=== PATIENT | male | born 1955 | race Caucasian/White ===

== ENCOUNTER 2017-10-28 19:29 | Emergency (ER) | payer SELFPAY ==
--- NOTE | 2017-10-28 19:39 | PDOC ---
Rapid Medical Evaluation Time Seen by Provider: 10/28/17 19:35 Medical Evaluation: I have performed a brief in-person evaluation of this patient. The patient presents with a chief complaint of: right hip pain today Pertinent physical exam findings: normal gait. No pain with palpation of right hip. No pain with manipulation of right leg or with palpation of lumbar spine. Patient admits the pain is intermittent and burning but does not radiate down leg I have ordered the following: nothing The patient will proceed to the ED for further evaluation. Discharge Disposition - Diagnosis Right hip pain - Referrals - Patient Instructions - Post Discharge Activity
[2017-10-28 19:53] VITALS: BP 158/87; PULSE 88; TEMP 98; BMI 26.4
--- NOTE | 2017-10-28 20:10 | PDOC ---
History of Present Illness - General Chief Complaint: Pain Stated Complaint: PAIN, ACUTE Time Seen by Provider: 10/28/17 19:35 History Source: Patient Exam Limitations: No Limitations - History of Present Illness Initial Comments: 10/28/17 20:15 Chief complaint: Hip pain Patient is 62-year-old male with history of NIDDM who states that he has right hip pain today that is shooting, last about 30 seconds. Patient took Advil earlier, no pain right now. No numbness or tingling or weakness. No saddle anesthesia or incontinence. Patient does not check his sugars GENERAL/CONSTITUTIONAL: No fever, weakness. dizziness HEAD, EYES, EARS, NOSE AND THROAT: No change in vision. No ear pain or discharge. No sore throat. CARDIOVASCULAR: No chest pain RESPIRATORY: No shortness of breath or cough GASTROINTESTINAL: No pain, nausea, vomiting, diarrhea or constipation GENITOURINARY: No dysuria MUSCULOSKELETAL: No neck or back pain. + Right hip SKIN: No rash NEUROLOGIC: No headache, vertigo, loss of consciousness, or loss of sensation. GENERAL: The patient is awake, alert, and fully oriented, in no acute distress. HEAD: Normal with no signs of trauma. EYES: Pupils equal, round and reactive to light, sclera anicteric, conjunctiva clear. ENT: pharynx: no erythema, no exudate, uvula midline NECK: supple CHEST: clear, nontender, rr ABD: soft, nontender EXTREMITIES: Normal range of motion, no edema. NEUROLOGICAL: Normal speech, normal gait. SKIN: Warm, Dry Past History - Past Medical History Allergies/Adverse Reactions: Allergies Allergy/AdvReac Type Severity Reaction Status Date / Time Penicillins Allergy Verified 10/28/17 19:48 Home Medications: Ambulatory Orders Aspirin 81 mg PO ASDIR 10/28/17 Metformin HCl 500 mg PO ASDIR 10/28/17 - Suicide/Smoking/Psychosocial Hx Smoking History: Never smoked Have you smoked in the past 12 months: No Information on smoking cessation initiated: No Hx Alcohol Use: No Drug/Substance Use Hx: No *Physical Exam - Vital Signs Last Vital Signs Temp Pulse Resp BP Pulse Ox 98.0 F 88 16 158/87 100 10/28/17 19:37 10/28/17 19:37 10/28/17 19:37 10/28/17 19:37 10/28/17 19:37 Medical Decision Making - Medical Decision Making 10/28/17 20:43 62-year-old male, NIDDM with left hip pain, no numbness, weakness, incontinence or saddle anesthesia. Patient earlier had sharp pain which was relieved with Advil. Patient is comfortable and ambulatory. Patient's fingerstick was 93. X-rays of the hip and lumbar spine show degenerative changes of the lumbar spine , no other acute pathology *DC/Admit/Observation/Transfer Diagnosis at time of Disposition: Right hip pain - Discharge Dispostion Disposition: HOME Condition at time of disposition: Stable - Referrals Referrals: Alicia Rivas MD [Primary Care Provider] - Juan Luis Cruz MD [Staff Physician] - - Patient Instructions Additional Instructions: Elevate You can apply ice for 20 minutes every 2 hours for the next 2 days Motrin 600 mg every 6 hours for pain. You should not take this for more than 3- 4 days Call the orthopedist tomorrow - Post Discharge Activity
== END 2017-10-28 20:47 | disposition home or self-care (01) ==
LOC: JERFT 19:29
DX: M25.551 Pain in right hip (principal); E11.9 Type 2 diabetes mellitus without complications; Z79.84 Long term (current) use of oral hypoglycemic drugs; Z79.82 Long term (current) use of aspirin
CPT/HCPCS: 72100-TC-FY; 73502-TC-RT; 82962; 99281-25

== ENCOUNTER 2020-04-18 11:56 | Emergency (ER) | payer OTHER ==
[2020-04-18 12:03] VITALS: BP 149/93; PULSE 100; TEMP 97.6; BMI 24.3
[2020-04-18] MEDS ORDERED: morphine CARPU-JECT 2 MG/1 ML DISP.SYRIN IM ONE (12:33)
[2020-04-18] MEDS ORDERED: MORPHINE SULFATE 2 MG/ML VIAL ONE (12:44)
[2020-04-18 13:01] LABS: BASO % 0.5 % (0-2.0); HEMATOCRIT 46.5 % (35.4-49); HEMOGLOBIN 15.4 GM/dL (11.7-16.9); LYMPH % 8.8 % (8-40); MCH 28.8 pg (25.7-33.7); MEAN CELL VOLUME 87.3 fl (80-96); MONO % 5.9 % (3.8-10.2); NEUT % 83.8 % (42.8-82.8); PLATELET COUNT 243 K/MM3 (134-434); RBC 5.33 M/mm3 (4.00-5.60); RDW 13.6 % (11.9-15.9); WHITE BLOOD COUNT 13.5 K/mm3 (4.0-10.0)
[2020-04-18 13:05] LABS: URINE APPEARANCE CLEAR; URINE BILIRUBIN NEGATIVE (NEGATIVE); URINE COLOR YELLOW; URINE GLUCOSE (UA) NEGATIVE (NEGATIVE); URINE KETONE TRACE (NEGATIVE); URINE LEUK ESTERASE NEGATIVE (NEGATIVE); URINE NITRITE NEGATIVE (NEGATIVE); URINE PROTEIN TRACE (NEGATIVE)
[2020-04-18 13:27] LABS: POTASSIUM 4.3 mmol/L (3.5-5.1)
[2020-04-18 13:28] LABS: ALBUMIN 4.5 g/dl (3.4-5.0)
[2020-04-18 13:29] LABS: BLOOD UREA NITROGEN 11.1 mg/dL (7-18); CALCIUM 9.4 mg/dL (8.5-10.1)
[2020-04-18 13:33] LABS: CREATININE 0.9 mg/dL (0.55-1.3)
[2020-04-18 13:34] LABS: BILIRUBIN,TOTAL 0.9 mg/dL (0.2-1); TOT PROT 7.5 g/dl (6.4-8.2)
== END 2020-04-18 14:43 | disposition home or self-care (01) ==
LOC: JERFT 11:56
PROC: 3E023NZ Introduction of Analgesics, Hypnotics, Sedatives into Muscle, Percutaneous Approach (ICD-10-PCS; principal; 2020-04-18)
DX: M25.552 Pain in left hip (principal)
CPT/HCPCS: 36415; 72170-TC-FY; 72192-TC; 80053; 81003; 85025; 87086; 99285-25